=== PATIENT | female | born 1970 | race Caucasian/White ===

== ENCOUNTER 2016-12-31 14:39 | Outpatient (CLI) | payer BC | END 2016-12-31 20:04 | disposition home or self-care (01) | LOC: SRD 14:39 | PROVIDERS: ATTEND Orthopaedic Surgery | DX: M79.89 Other specified soft tissue disorders (principal) | CPT/HCPCS: 93971 ==

== ENCOUNTER 2017-01-08 12:47 | Outpatient (CLI) | payer BC | END 2017-01-08 20:00 | disposition home or self-care (01) | LOC: SUS 12:47 | PROVIDERS: ATTEND Physician Assistant | DX: Z12.31 Encounter for screening mammogram for malignant neoplasm of breast (principal); I82.432 Acute embolism and thrombosis of left popliteal vein | CPT/HCPCS: 77067; 93971; G0202 ==

== ENCOUNTER 2017-03-27 09:15 | Outpatient (CLI) | payer BC | END 2017-03-27 21:10 | disposition home or self-care (01) | LOC: SUS 09:15 | PROVIDERS: ATTEND Internal Medicine | DX: M79.89 Other specified soft tissue disorders (principal); M79.662 Pain in left lower leg | CPT/HCPCS: 93971 ==

== ENCOUNTER 2018-12-02 07:08 | Day surgery (SDC) | payer BC ==
[2018-12-01 15:50] LABS: BILIRUBIN,URINE NEGATIVE (NEGATIVE); CLARITY/URINE CLEAR (CLEAR); COLOR,URINE YELLOW (YELLOW); GLUCOSE,URINE NEGATIVE (NEGATIVE); KETONES,URINE NEGATIVE (NEGATIVE); LEUKOCYTE ESTERASE ,URINE 1+ (NEGATIVE); NITRITE, URINE NEGATIVE (NEGATIVE); PROTEIN URINE NEGATIVE (NEGATIVE); UROBILINOGEN,URINE 0.2 (0.2-1.0)
[2018-12-01 15:51] LABS: BLOOD, URINE TRACE (NEGATIVE)
[2018-12-01 15:55] LABS: RBC,URINE 0-3 /HPF (0-3)
[2018-12-01 15:56] LABS: BACTERIA,URINE MODERATE /HPF (None Seen)
[2018-12-01 15:58] LABS: CALCIUM 8.6 mg/dL (8.4-11.0); CREATININE 0.69 mg/dL (0.55-1.30); POTASSIUM 3.6 mmol/L (3.5-5.1)
[2018-12-01 16:01] LABS: BASOPHILS % (AUTO) 0.3 % (0.0-2.0); EOSINOPHILS # (AUTO) 0.3 K/uL (0.0-0.4); EOSINOPHILS % (AUTO) 3.2 % (0.0-4.0); HEMATOCRIT 39.7 % (36-48); HEMOGLOBIN 13.5 g/dL (12.0-16.0); LYMPHOCYTES # (AUTO) 1.9 K/uL (1.0-5.5); MEAN CORPUSCULAR HEMOGLOBIN 30 pg (27-31); MEAN CORPUSCULAR HGB CONC 34 % (32-36); MEAN CORPUSCULAR VOLUME 90 fL (79.0-98.0); MONOCYTES # (AUTO) 0.7 K/uL (0.0-1.0); NEUTROPHILS # (AUTO) 5.5 K/uL (1.8-7.7); NEUTROPHILS % (AUTO) 65.5 % (40.0-70.0); PLATELET COUNT (AUTO) 340 K/uL (130-430); RED BLOOD CELL COUNT(AUTO) 4.42 MIL/uL (4.2-6.2); RED CELL DISTRIBUTION WIDTH 12.7 % (9.0-15.0); WHITE BLOOD COUNT (AUTO) 8.4 K/uL (4.8-10.8)
[~2018-12-02] VITALS: Ht 172.7 cm; Wt 118.4 kg
[2018-12-02] MEDS ORDERED: ROPIVACAINE HCL/PF 5 MG/ML 0.5% 30 ML VIAL INJ ONE (09:20)
[2018-12-02] MEDS ORDERED: fentaNYL CITRATE 250 MCG/5 ML AMP IV ONE (09:20)
[2018-12-02] MEDS ORDERED: LR 1,000 ML IV.SOLN IV ONE (09:20)
[2018-12-02] MEDS ORDERED: KETOROLAC TROMETHAMINE 30 MG VIAL IVP ONE (09:20)
[2018-12-02] MEDS ORDERED: NS 1000 ML IV.SOLN IV ONE (09:20)
[2018-12-02] MEDS ORDERED: SEVOFLURANE 15 MIN GAS INH ONE (09:20)
[2018-12-02] MEDS ORDERED: BUPIVACAINE /PF 0.25% 30 ML VIAL INJ ONE (09:20)
[2018-12-02] MEDS ORDERED: ROPIVACAINE HCL/PF 0.2% (NAROPIN) 200 ML PLAST..BAG EP ONE (09:20)
[2018-12-02] MEDS ORDERED: PROPOFOL 200MG/ 20ML VIAL (DIPRIVAN) IV ONE (09:20)
[2018-12-02] MEDS ORDERED: ROCURONIUM BROMIDE 10 MG/ML (ZEMURON) IV ONE (09:20)
[2018-12-02] MEDS ORDERED: CEFAZOLIN 1 GM IVPB PREMIX 50 ML IV ONE (09:20)
[2018-12-02] MEDS ORDERED: MIDAZOLAM HCL 5 MG/5 ML VIAL IVP ONE (09:20)
[2018-12-02] MEDS ORDERED: LR 1,000 ML IV SCH (10:43)
[2018-12-02] MEDS ORDERED: METOCLOPRAMIDE HCL 10 MG/2 ML VIAL IVP PRN (10:45)
[2018-12-02] MEDS ORDERED: MORPHINE 4 MG/ML INJ. SYRINGE IVP PRN ×2 (10:45)
[2018-12-02] MEDS ORDERED: ONDANSETRON HCL 4 MG/2 ML VIAL IVP PRN (11:45)
[2018-12-02] MEDS ORDERED: HYDROmorphone 2 MG TAB PO PRN (11:45)
[2018-12-02] MEDS ORDERED: PROMETHAZINE HCL 25 MG/ML AMP IM PRN (11:45)
[2018-12-02] MEDS: MORPHINE 4 MG/ML INJ. SYRINGE IVP PRN (12:23)
[2018-12-02] MEDS ORDERED: MORPHINE 4 MG/ML INJ. SYRINGE ONE (12:29)
[2018-12-02 13:04] VITALS: BP_SYST 118
[2018-12-02] MEDS: OXYCODONE/ACETAMINOPHEN 5-325 TABLET PO PRN (13:40)
[2018-12-02] MEDS ORDERED: OXYCODONE/ACETAMINOPHEN 5-325 TABLET ONE (13:49)
== END 2018-12-02 16:15 | disposition home or self-care (01) ==
LOC: SDS 07:08 → SMU 07:09 → SDS 16:15
PROVIDERS: ATTEND Obstetrics & Gynecology
DX: D25.1 Intramural leiomyoma of uterus (principal); D25.2 Subserosal leiomyoma of uterus; N83.8 Other noninflammatory disorders of ovary, fallopian tube and broad ligament; F41.9 Anxiety disorder, unspecified; R00.0 Tachycardia, unspecified; Z98.890 Other specified postprocedural states; Z79.899 Other long term (current) drug therapy; Z82.49 Family history of ischemic heart disease and other diseases of the circulatory system; Z83.3 Family history of diabetes mellitus; Z80.0 Family history of malignant neoplasm of digestive organs
CPT/HCPCS: 36415; 80048; 81000-TC; 84703; 85025; 86886; 86900; 86901; 87086; 88307; C1727; E0190; J0690; J1885; J2250; J2270; J2704; J3010; J3490; J7030; J7120